=== PATIENT | female | born 1980 | race Caucasian/White ===

== ENCOUNTER 2023-01-23 15:32 | Emergency (ER) | payer BC, SELFPAY ==
[2023-01-23 15:50] VITALS: BP 156/106; PULSE 86; RESP 18; TEMP 37.1; O2SAT 100; BMI 46.9
--- NOTE | 2023-01-23 15:58 | XR_ITS ---
PROCEDURE INFORMATION: Exam: XR Right Ankle Exam date and time: 01/23/2023 4:03 PM Age: 42 years old Clinical indication: Ankle; Right; Prior surgery; Surgery date: 6+ months; Patient HX: Pain x years, worsened recently, nkt. Pain @ distal tib/fib radiating to anterior surface of foot TECHNIQUE: Imaging protocol: Radiologic exam of the right ankle. Views: 3 or more views. COMPARISON: No relevant prior studies available. FINDINGS: Bones/joints: Medial malleolar fixation screws without evidence hardware fracture or loosening. No acute fracture or dislocation. Remote healed fracture of the distal fibular diaphysis and remote distal fibular avulsion fracture. Prominent plantar calcaneal and Achilles enthesophytes. Soft tissues: Unremarkable. IMPRESSION: No acute osseous abnormality. Postsurgical and chronic findings as above.
--- NOTE | 2023-01-23 15:59 | XR_ITS ---
PROCEDURE INFORMATION: Exam: XR Right Foot Exam date and time: 01/23/2023 4:06 PM Age: 42 years old Clinical indication: Right; Prior surgery; Surgery date: 6+ months; Patient HX: Pain x years, worsened recently, nkt. Pain @ distal tib/fib radiating to anterior surface of foot TECHNIQUE: Imaging protocol: Radiologic exam of the right foot. Views: 3 or more views. COMPARISON: CR Ankle R 01/23/2023 4:03 PM FINDINGS: Bones/joints: Medial malleolar fixation screws without evidence hardware fracture or loosening. No acute fracture or dislocation. Remote partially imaged distal fibular diaphysis and remote distal fibular avulsion fractures. Prominent plantar calcaneal and Achilles enthesophytes. Soft tissues: Unremarkable. IMPRESSION: No acute osseous abnormality. Postsurgical and chronic findings as above.
--- NOTE | 2023-01-23 16:04 | EXP.UTC ---
Discharge Plan Referrals Follow up/Referrals: Rachel Pan [Primary Care Provider] - See instructions Activity Restrictions/Add. Instructions Additional Instructions/Restrictions: Make sure to get insert for your shoes Ice to the area may help with pain Over the counter Motrin and/or Tyelenol may help with pain Return if needed Follow up with your Family doctor if needed Clinical Impressions Clinical Impression: Foot pain Instructions Patient Instructions: DI for Foot Pain Discharge ED Provider: Jacey Gallegos [facility] [place] HPI General Stated complaint: Poss Stress Fx R top of foot Mode of Arrival: Ambulatory Source of Information: Patient Limitations: No Limitations Time Seen by Provider: 01/23/23 16:04 Description of Symptoms (Recalled from Triage Doc. by RN): PATIENT C/O PAIN TO TOP OF RIGHT FOOT THAT RADIATES TO JUST ABOVE THE ANKLE. NO KNOWN INJURY. SHE STATES IT HAS BEEN HURTING HER FOR A WHILE, BUT HAS GOTTEN WORSE SINCE THE BEGINNING OF THIS WEEK HEENT Symptoms (Recalled from RN notes): No Resp Symptoms (Recalled from RN notes): No Skin Symptoms (Recalled from RN notes): No MS Symptoms (Recalled from RN notes): Yes Functional Status (Recalled from RN notes): WNL History of Present Illness Provider Complaint: Patient states that she has been having pain in the top of her right foot that radiates up to just above her ankle States that she hasnt done anything that she is aware of to hurt it States that it has been hurting awhile but has been hurting worse the last week and today seemed to be getting worse so she came in to get it checked Related Data Allergies Allergy/AdvReac Type Severity Reaction Status Date / Time No Known Allergies Allergy Verified 01/23/23 16:04 Worker's Comp Is this a Worker's Comp case?: No [facility] Disclaimer: The information contained in this section may have been updated after the patient was seen, as this information can be updated by other users. Social History Smoking Status: Unknown if ever smoked alcohol intake: never current occupational status: employed Travel in the last 8 weeks: None ROS Obtained: Yes All systems reviewed & no additional complaints except as documented and Yes Systems reviewed as appropriate & no additional complaints except as documented Constitutional Constitutional: Reports system reviewed and no additional complaints, except as documented, Reports as per HPI, Denies body ache, Denies chills and Denies fever(s) ENT Ears, Nose, Mouth, and Throat: Reports system reviewed and no additional complaints, except as documented and Reports as per HPI Cardiovascular Cardiovascular: Reports system reviewed and no additional complaints, except as documented and Reports as per HPI Respiratory Respiratory: Reports system reviewed and no additional complaints, except as documented and Reports as per HPI Gastrointestinal Gastrointestingal: Reports system reviewed and no additional complaints, except as documented and as per HPI Musculoskeletal Musculoskeletal: Reports system reviewed and no additional complaints, except as documented and Reports as per HPI Comments: pain in top of right foot that shoots pain just above ankle denies known injury Physical Exam General General appearance: alert and in no apparent distress ENT ENT exam: Present mucous membranes moist Neck Neck exam: Present normal inspection and full ROM Chest Chest inspection: Present normal inspection and symmetric chest wall rise; Absent tenderness Respiratory Respiratory exam: Present normal lung sounds bilaterally; Absent respiratory distress or wheezes Cardiovascular Cardiovascular exam: Present regular rate, normal rhythm and normal heart sounds Expanded Lower Extremity Exam Right: Hip/Pelvis exam: Present normal inspection and full ROM Upper leg exam: Present normal inspection and full ROM Knee exam: Present normal inspection and full ROM Lower leg exam: Presen
[2023-01-23 16:55] VITALS: BP 156/106; PULSE 86; RESP 18; TEMP 37.1; O2SAT 100
== END 2023-01-23 16:57 | disposition home or self-care (01) ==
PROVIDERS: Emergency Provider Nurse Practitioner; PCP Family Medicine
DX: M79.671 Pain in right foot (principal)
CPT/HCPCS: 73610; 73630; 99212; G0463

== ENCOUNTER 2024-07-04 15:45 | Emergency (ER) | payer BC, SELFPAY ==
--- NOTE | 2024-07-04 15:54 | XR_ITS ---
FINAL REPORT CLINICAL HISTORY: Left foot pain FINDINGS: LEFT FOOT Three views of the left foot demonstrate no acute fracture or dislocation. There are mild degenerative changes at the first metatarsophalangeal joint. A moderate calcaneal spur is noted. The soft tissues are unremarkable. IMPRESSION: Degenerative changes without acute bony abnormality. Reviewed, Interpreted and Dictated by Vidya Howard MD Transcribed by Nathalie Malin Authenticated and [facility]
[2024-07-04 15:58] VITALS: BP 163/103; PULSE 94; RESP 20; TEMP 36.7; O2SAT 99; BMI 43.7
--- NOTE | 2024-07-04 16:12 | ED_ITS ---
Discharge Plan Disposition Patient Disposition: Home, Self-Care Condition: Good Referrals Follow up/Referrals: Rachel Pan [Primary Care Provider] - See instructions Chela Pelletier DPM [Staff Physician] - See instructions Activity Restrictions/Add. Instructions Additional Instructions/Restrictions: *RICE, Rest the extremity, Ice 15-20 minutes 3-4 times daily, Compress- wear the terry wrap as discussed as much as possible to help reduce swelling and pain, Elevate the extremity when at rest *Terry wrap is for support and help control swelling, use it except in the shower. Be sure that is not to tight but not to loose either *Elevate when resting? *Ibuprofen 600-800mg every 6-8 hours as needed for pain an inflammation. If need something more can take Tylenol in between doses of Ibuprofen to help Immediately follow up with your family doctor for new or worsening of symptoms, or no noticeable improvement over the next 3-5 days Clinical Impressions Clinical Impression: Foot pain Instructions Patient Instructions: How to Use a Walking Boot, How To Perform RICE (Rest, Ice, Compress, Elevate) Print Language Print Language: [place] Discharge ED Provider: Jacey Gallegos [facility] General Stated complaint: Pain L foot Mode of Arrival: Ambulatory Source of Information: Patient Time Seen by Provider: 07/04/24 16:12 Description of Symptoms (Recalled from Triage Doc. by RN): LEFT FOOT PAIN BETWEEN 2/3 RD TOES AND HEAL HEENT Symptoms (Recalled from RN notes): No Resp Symptoms (Recalled from RN notes): No Skin Symptoms (Recalled from RN notes): No MS Symptoms (Recalled from RN notes): Yes Functional Status (Recalled from RN notes): PAIN DURING WALKING History of Present Illness Provider Complaint: Patient states that she stands on concrete floors for work and she has been having pain in her left heel area and between her second and third toe Denies known injury Related Data Allergies Allergy/AdvReac Type Severity Reaction Status Date / Time No Known Allergies Allergy Verified 01/23/23 16:04 Worker's Comp Is this a Worker's Comp case?: No [facility] Disclaimer: The information contained in this section may have been updated after the patient was seen, as this information can be updated by other users. Social History (Updated 01/23/23 @ 16:55 by Jacey Gallegos APRN) Smoking Status: Unknown if ever smoked alcohol intake: never current occupational status: employed Travel in the last 8 weeks: None ROS Obtained: Yes All systems reviewed & no additional complaints except as documented and Yes Systems reviewed as appropriate & no additional complaints except as documented Constitutional Constitutional: Reports system reviewed and no additional complaints, except as documented and Reports as per HPI ENT Ears, Nose, Mouth, and Throat: Reports system reviewed and no additional complaints, except as documented and Reports as per HPI Cardiovascular Cardiovascular: Reports system reviewed and no additional complaints, except as documented and Reports as per HPI Respiratory Respiratory: Reports system reviewed and no additional complaints, except as documented and Reports as per HPI Gastrointestinal Gastrointestingal: Reports system reviewed and no additional complaints, except as documented and as per HPI Musculoskeletal Musculoskeletal: Reports system reviewed and no additional complaints, except as documented, Reports as per HPI and Reports other (pain in left foot denies known injury) Physical Exam General General appearance: alert and in no apparent distress ENT ENT exam: Present mucous membranes moist Respiratory Respiratory exam: Present normal lung sounds bilaterally; Absent respiratory distress or wheezes Cardiovascular Cardiovascular exam: Present regular rate, normal rhythm and normal heart sounds Expanded Lower Extremity Exam Left: Foot/toe exam: Present tenderness; Absent swelling, ecchymosis, erythema or puncture wound Bottom foot image: 2 1. reports tenderness with hx of heel spur 2. reports pain denies known injury Neurological Exam Neurological exam: Present alert, oriented X3 and normal gait Medical Decision Making Medical Records Screening: Per USPSTF and CDC recommendations, given the prevalence of disease in our region, it is our hospital?s policy to screen for HIV and viral Hepatitis for all patients aged 18 and over and those with ongoing risk factors. Dayne Inquiry Pt receiving controlled substance: No Dayne was queried for this patient: No Vital Signs: 07/04/24 15:58 Temperature 98.1 F Temperature Source Oral Pulse Rate [Left Radial] 94 H Respiratory Rate 20 Blood Pressure [Left Arm] 163/103 H Blood Pressure Mean [Left Arm] 123 02 Sat by Pulse Oximetry 99 Orders (Tests/Meds): ORDERS Category Date Time Status Foot XR left minimum 3 views [XR foot LT min 3V] Stat Exams 07/04/24 15:54 Taken Radiology Data #1: Image(s): Foot/Toes Image Reviewed: Yes I reviewed the patient's radiology image no acute fracture Procedures Orthopedic Splinting/Casting Injury #1: Side: left Lower Extremity Injury Location: foot Lower Extremity Immobilizer: boot orthosis Post Cast/Splinting Neuro Status: intact and no change Post Cast/Splinting Vasc Status: intact and no change
[2024-07-04 17:03] VITALS: BP 163/103; PULSE 94; RESP 20; TEMP 36.6
== END 2024-07-04 17:05 | disposition home or self-care (01) ==
PROVIDERS: Emergency Provider Nurse Practitioner; PCP Family Medicine
DX: M79.672 Pain in left foot (principal)
CPT/HCPCS: 73630; 99212; 99214; G0463